=== PATIENT | female | born 1960 | race Caucasian/White ===

== ENCOUNTER → 2018-01-26 | Outpatient (CLI) | payer OTHER ==
[~2018-01-26] MED LIST: IMITREX25 MG PO; LISINOPRIL-HCT1 EAC2 PO; OMEGA 3 1,0001 EACH PO; [UNRECOGNIZED DRUG - OTHER] PO
--- NOTE | 2018-01-27 13:39 | Diagnostic Imaging Report ---
#[id number] - MGSCRBIL #BILATERAL DIGITAL SCREENING MAMMOGRAM WITH CAD: 01/26/2018 CLINICAL: Routine screening. Comparison is made to exams dated: 01/26/2017 mammogram and 01/25/2016 mammogram - [facility]. Current study contains 8 films. There are scattered fibroglandular elements in both breasts. Current study was also evaluated with a Computer Aided Detection (CAD) system. There are benign calcifications in both breasts. There also are benign intramammary nodes in both breasts. Bilateral breast implants are irregular appearing with scattered perimplant calcifications but stable. No significant masses, calcifications, or other findings are seen in either breast. There has been no significant interval change. IMPRESSION: BENIGN There is no mammographic evidence of malignancy. A 1 year screening mammogram is recommended. The patient will be notified by letter of the results. Hugo Osullivan Jr., D.O. cw/:01/27/2018 09:39:32 Siding Installer: Kathleen GODFREY(Silvestre)(M), [facility] letter sent: Compared to Prior B9 Mammogram BI-RADS: 2 Benign
== END ==
LOC: MAMMO 15:35
PROVIDERS: ATTEND Obstetrics & Gynecology
DX: Z12.31 Encounter for screening mammogram for malignant neoplasm of breast (principal)
CPT/HCPCS: 77067

== ENCOUNTER → 2019-01-28 | Outpatient (CLI) | payer OTHER ==
--- NOTE | 2019-01-28 16:57 | Diagnostic Imaging Report ---
Bone Mineral Density, 01/28/2019. Clinical History: Osteoporosis Screening Comparison: No comparisons available for review in PACS. Findings: Bone Mineral Density Measurement (BMD) - Lumbar Spine: 1.086 gm/cm2 Left Femoral Neck: 0.677 gm/cm2 Standard Deviation as compared to the young adult population (T -score)- Lumbar Spine: 0.4 Left Femoral Neck: -1.6 Standard Deviation as compared to the age matched controls (Z-score)- Lumbar Spine: 1.8 Left Femoral Neck: -0.2 IMPRESSION: These findings are consistent with normal bone mineral density of the lumbar spine. There is no increased risk of an osteoporotic fracture of the lumbar spine as compared to the young adult population. These findings are consistent with osteopenia of the femoral necks. There is a 1-2 times increased risk of an osteoporotic fracture of the femoral necks as compared to the young adult population. Diagnostic criteria (World Health Organization)- Normal: BMD measurement less than one standard deviation from young adult population Osteopenia: BMD measurement between 1 and 2.5 standard deviations below Osteoporosis: BMD measurement greater than 2.5 standard deviations below Severe osteoporosis: Osteoporosis and one or more fragility fractures Signed by: Ponce Mckinnon MD on 01/28/2019 4:54 PM
== END ==
LOC: MAMMO 15:53
PROVIDERS: ATTEND Obstetrics & Gynecology
DX: Z12.31 Encounter for screening mammogram for malignant neoplasm of breast (principal); M85.80 Other specified disorders of bone density and structure, unspecified site
CPT/HCPCS: 77067; 77080

== ENCOUNTER → 2020-02-01 | Outpatient (CLI) | payer OTHER | LOC: MAMMO 13:48 | PROVIDERS: ATTEND Obstetrics & Gynecology | DX: Z12.31 Encounter for screening mammogram for malignant neoplasm of breast (principal) | CPT/HCPCS: 77067 ==

== ENCOUNTER → 2020-02-22 | Outpatient (CLI) | payer OTHER ==
--- NOTE | 2020-02-23 08:26 | Diagnostic Imaging Report ---
#[id number] - USBRELIMLT ULTRASOUND OF THE LEFT BREAST : 02/22/2020 Comparison is made to exams dated: 02/22/2020 mammogram and 02/01/2020 mammogram - [facility]. Color flow and real-time ultrasound were performed on the left breast. There is a benign 9 mm oval cyst with a smooth internal wall in the left breast at 2 o'clock anterior depth. This oval cyst is anechoic. This correlates with mammography findings. IMPRESSION: BENIGN There is no sonographic evidence of malignancy. The 9 mm oval cyst in the left breast is benign. A 1 year screening mammogram is recommended. CLEMENTE CLEARY M.D. ct/:02/22/2020 12:16:27 Automobile Glass Technician: Chema Ramos [facility], [facility] letter sent: Normal Exam Ultrasound BI-RADS: 2 Benign
--- NOTE | 2020-02-23 08:26 | Diagnostic Imaging Report ---
#[id number] - MGDXLT #UNILATERAL LEFT DIGITAL DIAGNOSTIC MAMMOGRAM WITH SPOT COMPRESSION: 02/22/2020 Comparison is made to exams dated: 02/01/2020 mammogram, 01/28/2019 mammogram and 01/26/2018 mammogram - [facility]. Current study contains 3 films. There are scattered fibroglandular elements in the left breast. Benign appearing calcifications are noted in the left breast. There is a benign 1 cm oval cyst in the left breast at 2 o'clock anterior depth. This correlates with ultrasound findings. No other significant masses or calcifications are seen in the breast. IMPRESSION: BENIGN See the report for ultrasound performed the same day for additional details. There is no mammographic evidence of malignancy. A 1 year screening mammogram is recommended. The results were discussed with the patient. CLEMENTE CLEARY M.D. ct/:02/22/2020 12:15:00 Vacuum Cleaner Operator: Kathleen GODFREY(Silvestre)([place]), [facility] letter sent: Normal Exam Mammogram BI-RADS: 2 Benign
== END ==
LOC: MAMMO 09:18
PROVIDERS: ATTEND Obstetrics & Gynecology
DX: R92.2 Inconclusive mammogram (principal)

== ENCOUNTER → 2021-02-21 | Outpatient (CLI) | payer OTHER | LOC: MAMMO 09:38 | PROVIDERS: ATTEND Obstetrics & Gynecology | DX: Z12.31 Encounter for screening mammogram for malignant neoplasm of breast (principal); M85.80 Other specified disorders of bone density and structure, unspecified site | CPT/HCPCS: 77067; 77080 ==

== ENCOUNTER → 2022-06-09 | Outpatient (CLI) | payer BC | LOC: MAMMO 12:47 | PROVIDERS: ATTEND Obstetrics & Gynecology | DX: Z12.31 Encounter for screening mammogram for malignant neoplasm of breast (principal); M85.88 Other specified disorders of bone density and structure, other site | CPT/HCPCS: 77067; 77080 ==